=== PATIENT | male | born 1980 | race Caucasian/White ===

== ENCOUNTER 2016-10-21 20:09 | Emergency (ER) | payer OTHER ==
[2016-10-21 21:00] LABS: BASOPHIL % 0.2 % (0.0-0.4); Eosinophil % 0.9 % (0.00-5.0); Lymphocytes % 28.5 % (24.0-44.0); Mean Cell Volume 92.7 fl (78-100); Mean Corpuscular Hemoglobin 30.1 pg (26-32); Mean Platelet Volume 10.2 fl (6-9.5); Monocytes % 11.4 % (0.0-12.0); Platelet Count 213 K/mm3 (150-450); Red Blood Count 5.22 M/mm3 (4.1-5.6); White Blood Count 12.7 K/mm3 (4.0-10.5)
[2016-10-21] MEDS ORDERED: Sodium Chloride 0.9% 1000 ML 1,000 ML IV SCH (21:00)
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
[2016-10-21] MEDS ORDERED: Zofran 4 MG/2 ML VIAL IV ONE (21:05)
[2016-10-21] MEDS ORDERED: DILAUDID 2 MG INJECTION IV STA (21:06)
[2016-10-21 21:15] LABS: ANION GAP 13.2 MEQ/L (5-15); BLOOD UREA NITROGEN 14 mg/dL (9-20); CHLORIDE 105 mEq/L (98-107); Carbon Dioxide 30.3 mEq/L (21-32); Glucose 99 MG/DL (70-110); Potassium 3.6 mEq/L (3.5-5.1); SODIUM 145 mEq/L (136-145)
[2016-10-21] MEDS ORDERED: Sodium Chloride 0.9% 1000 ML 1,000 ML ONE (21:43)
[2016-10-21] MEDS ORDERED: DILAUDID 1 MG/ML INJECTION ONE ×2 (21:43→21:47)
[2016-10-21] MEDS ORDERED: Zofran 4 MG/2 ML VIAL ONE (21:43)
[2016-10-21 22:26] VITALS: BP 104/63; PULSE 88
[2016-10-21 22:27] VITALS: O2SAT 98
[2016-10-21] MEDS ORDERED: Norco 10/325 MG Tablet PO ONE (22:39)
[2016-10-21] MEDS ORDERED: Norco 10/325 MG Tablet ONE (22:56)
--- NOTE | 2016-10-22 08:41 | XRAY ---
Indication: Dizziness and right frontal tenderness following fall. High blood pressure. Multiple contiguous axial images obtained through the head without contrast. Comparison: None Normal-appearing brain parenchyma, ventricles, and bony calvarium. Visualized paranasal sinuses and mastoid air cells are pneumatized and clear. Impression: Normal CT head without contrast exam. CT DI 48.07
--- NOTE | 2016-10-22 08:43 | XRAY ---
Indication: Pain following fall. Comparison: None 3 views of the right elbow obtained. No bony, articular, or soft tissue abnormalities.
--- NOTE | 2016-10-22 08:43 | XRAY ---
Indication: Pain following fall. Comparison: None 3 views of the right shoulder limited by body habitus. No bony, articular, or soft tissue abnormalities.
== END 2016-10-21 23:06 | disposition home or self-care (01) ==
LOC: ED 20:09
DX: R55 Syncope and collapse (principal); S00.03XA Contusion of scalp, initial encounter; S50.01XA Contusion of right elbow, initial encounter; S40.011A Contusion of right shoulder, initial encounter; S53.401A Unspecified sprain of right elbow, initial encounter; S43.401A Unspecified sprain of right shoulder joint, initial encounter; I10 Essential (primary) hypertension; W22.03XA Walked into furniture, initial encounter
CPT/HCPCS: 36000; 36415; 70450; 73030; 73080; 80048; 85025; 93005; 93041; 96374; 99284; J1170; J2405

== ENCOUNTER 2016-12-02 17:37 | Emergency (ER) | payer OTHER ==
[2016-12-02] MEDS ORDERED: DUONEB 0.5-3 MG/3 ml Neb IH ONE ×2 (17:51→18:06)
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
[2016-12-02] MEDS ORDERED: Decadron 4 MG INJ IM ONE (17:54)
[2016-12-02] MEDS ORDERED: Decadron 4 MG INJ ONE (17:59)
[2016-12-02] MEDS ORDERED: DECADRON 10MG INJ. ONE (18:00)
[2016-12-02] MEDS ORDERED: DECADRON 10MG INJ. IM ONE (18:08)
[2016-12-02] MEDS ORDERED: PROVENTIL 2.5 MG/3 ML NEB IH ONE ×2 (18:54→18:57)
[2016-12-02 19:34] VITALS: BP 154/76; PULSE 99; O2SAT 92
--- NOTE | 2016-12-03 08:52 | XRAY ---
Indication: Dyspnea. Comparison: March 06, 2007. PA/lateral chest obtained with the lateral view limited due to respiration artifact. New diffuse bilateral interstitial alveolar opacities without consolidation or large effusion. Remaining heart and bony thorax unremarkable.
== END 2016-12-02 19:34 | disposition home or self-care (01) ==
LOC: ED 17:37
DX: J40 Bronchitis, not specified as acute or chronic (principal); R05 Cough; R06.02 Shortness of breath; R50.9 Fever, unspecified; I10 Essential (primary) hypertension; Z79.899 Other long term (current) drug therapy
CPT/HCPCS: 71020; 94640; 96372; 99284; J1100

== ENCOUNTER 2020-10-15 14:23 | Emergency (ER) | payer OTHER ==
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
[2020-10-15] MEDS ORDERED: Zofran 4 MG/2 ML VIAL ONE (15:10)
[2020-10-15] MEDS ORDERED: MORPHINE SULFATE 4 MG INJ ONE (15:10)
[2020-10-15] MEDS: MORPHINE SULFATE 4 MG INJ IV ONE (15:13)
[2020-10-15] MEDS: Zofran 4 MG/2 ML VIAL IV ONE (15:13)
[2020-10-15 15:30] LABS: Absolute Neutrophil Ct (ANC) 7.21 (1.4-6.9); BASOPHIL % 0.4 % (0.0-0.4); Basophil (Absolute #) 0.05 (0-0.4); Eosinophil % 1.3 % (0.00-5.0); Eosinophil (Absolute #) 0.15 (0-0.5); Hematocrit 47.5 % (42-50); Hemoglobin 14.9 gm/dl (12.5-18.0); Lymphocyte (Absolute #) 3.15 (1.0-4.6); Lymphocytes % 26.7 % (24.0-44.0); Mean Corpuscular Hemoglobin 28.2 pg (26-32); Mean Corpuscular Hgb Concent. 31.4 g/dl (32-36); Mean Platelet Volume 10.2 fl (7.5-11.0); Monocyte (Absolute #) 1.24 (0.0-1.3); Monocytes % 10.5 % (0.0-12.0); Neutrophil % 61.1 % (36.0-66.0); Platelet Count 249 K/mm3 (150-450); Red Blood Count 5.28 M/mm3 (4.1-5.6); Red Cell Distribution Width 16.6 % (11.5-14.0); White Blood Count 11.8 K/mm3 (4.0-10.5)
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
--- NOTE | 2020-10-15 16:50 | XRAY ---
Indication: Pain. 2-dimensional sonogram and color Doppler imaging of the major venous vessels of the left and right leg was performed. Comparison: None [employer] notes technically difficult exam due to patient body habitus. No thrombus seen in the examined deep venous vessels of the left and right leg including greater saphenous vein. Veins demonstrate normal compressibility. Venous waveforms are normal with and without augmentation. Impression: Left and right leg negative for DVT.
[2020-10-15 17:13] LABS: ALBUMIN 4.3 g/dL (3.5-5.0); ALKALINE PHOSPHATASE 82 U/L (38-126); ANION GAP 11.1 MEQ/L (5-15); BLOOD UREA NITROGEN 14 mg/dL (9-20); CHLORIDE 104 mmol/L (98-107); Calcium 9.3 mg/dL (8.4-10.2); Carbon Dioxide 29 mmol/L (22-30); Creatinine 1 0.84 mg/dL (0.66-1.25); EST GLOMERULAR FILTRATION RATE > 60.0 ML/MIN; Glucose 90 mg/dL (74-106); NT PRO BNP 84.8 pg/mL (0-450); Potassium 3.9 mmol/L (3.5-5.1); SGOT/AST 26 U/L (17-59); SGPT/ALT 23 U/L (0-50); SODIUM 140 mmol/L (137-145); Total Protein 7.8 g/dL (6.3-8.2)
[2020-10-15 17:15] VITALS: O2SAT 95
[2020-10-15 17:18] VITALS: BP 121/49; PULSE 70
== END 2020-10-15 17:28 | disposition home or self-care (01) ==
LOC: ED 14:23
DX: M79.605 Pain in left leg (principal); M79.604 Pain in right leg; R60.0 Localized edema; I10 Essential (primary) hypertension; E66.9 Obesity, unspecified; Z79.899 Other long term (current) drug therapy; F17.200 Nicotine dependence, unspecified, uncomplicated
CPT/HCPCS: 36000; 36415; 71045; 80053; 83605; 83735; 83880; 84484; 85025; 93005; 93970; 99284; J2270; J2405

== ENCOUNTER 2021-09-19 13:35 | Emergency (ER) | payer OTHER ==
[2021-09-19] MEDS ORDERED: ZOFRAN ODT 4 MG PO ONE (14:37)
[2021-09-19] MEDS ORDERED: Zosyn 3.375 GM Vial 3.375 GM in Sodium Chloride 100ML MINI-BAG PLUS 100 ML IV ONE (14:37)
[2021-09-19] MEDS ORDERED: PERCOCET TABLET 5/325MG PO ONE (14:38)
[2021-09-19] MEDS ORDERED: VANCOMYCIN 2 GRAM/400 ML BAG 2 GM/400 ML PIGGYBACK IV ONE ×2 (14:38→17:44)
[2021-09-19 15:03] LABS: Hematocrit 44.8 % (42-50); Mean Cell Volume 95.5 fl (78-100); Mean Corpuscular Hemoglobin 29.9 pg (26-32); Mean Corpuscular Hgb Concent. 31.3 g/dl (32-36); Platelet Count 155 K/mm3 (150-450); Red Blood Count 4.69 M/mm3 (4.1-5.6); Red Cell Distribution Width 16.5 % (11.5-14.0)
[2021-09-19] MEDS ORDERED: Zosyn 3.375 GM Vial IV ONE (15:04)
[2021-09-19] MEDS ORDERED: ZOFRAN ODT 4 MG ONE (15:04)
[2021-09-19] MEDS ORDERED: PERCOCET TABLET 5/325MG ONE (15:04)
[2021-09-19] MEDS ORDERED: Sodium Chloride 100ML MINI-BAG PLUS 100 ML IV ONE (15:06)
[2021-09-19 15:09] LABS: ALBUMIN 3.5 g/dL (3.5-5.0); ALKALINE PHOSPHATASE 73 U/L (38-126); ANION GAP 10.9 MEQ/L (5-15); BLOOD UREA NITROGEN 14 mg/dL (9-20); CHLORIDE 105 mmol/L (98-107); Calcium 8.3 mg/dL (8.4-10.2); Carbon Dioxide 30 mmol/L (22-30); Creatinine 1 0.78 mg/dL (0.66-1.25); EST GLOMERULAR FILTRATION RATE > 60.0 ML/MIN; Glucose 121 mg/dL (74-106); Potassium 3.5 mmol/L (3.5-5.1); SGOT/AST 28 U/L (17-59); SGPT/ALT 27 U/L (0-50); SODIUM 142 mmol/L (137-145); Total Protein 6.9 g/dL (6.3-8.2)
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
[2021-09-19] MEDS ORDERED: Sodium Chloride 0.9% 1000 ML 1,000 ML IV STA (15:39)
[2021-09-19] MEDS ORDERED: Sodium Chloride 0.9% 1000 ML 1,000 ML ONE (15:40)
[2021-09-19 15:54] LABS: BAND 17 % (0.0-2.0); Lymphocytes 11 % (24-44); Monocyte 8 % (0.0-12.0); Neutrophils 64 % (36.-66.); Total Cells Counted 100
[2021-09-19 15:57] LABS: Dohle Bodies 1+; Toxic Granulation 1+
[2021-09-19 15:58] LABS: Platelet Estimate NORMAL (NORMAL)
[2021-09-19 17:47] LABS: INFLUENZA A NEGATIVE (NEGATIVE); INFLUENZA B NEGATIVE (NEGATIVE); RESPIRATORY SYNCTIAL VIRUS NEGATIVE (Negative); SARS-CoV-2 Xpert Express NEGATIVE (NEGATIVE)
[2021-09-19] MEDS ORDERED: Lopressor 50 MG ONE (17:55)
[2021-09-19 20:16] VITALS: BP 135/79; PULSE 94; O2SAT 94
[2021-09-20] MEDS ORDERED: Toprol Xl 100 MG PO SCH (10:00)
== END 2021-09-19 20:12 | disposition left against medical advice (07) ==
LOC: ED 13:35
DX: L03.115 Cellulitis of right lower limb (principal); I48.91 Unspecified atrial fibrillation; Z79.01 Long term (current) use of anticoagulants; I89.0 Lymphedema, not elsewhere classified; I87.8 Other specified disorders of veins; Z72.0 Tobacco use
CPT/HCPCS: 0241U; 36000; 36415; 80053; 83605; 83880; 84484; 85025; 87040; 93005; 96374; 99284; Q0162; A9270-GY; J3370

== ENCOUNTER 2021-09-21 14:30 | Observation (INO) | payer OTHER ==
[2021-09-21] MEDS ORDERED: Sodium Chloride 0.9% 1000 ML 1,000 ML IV STA (15:16)
[2021-09-21 15:23] LABS: Hematocrit 43.8 % (42-50); Hemoglobin 13.3 gm/dl (12.5-18.0); Mean Cell Volume 97.6 fl (78-100); Mean Corpuscular Hemoglobin 29.6 pg (26-32); Mean Corpuscular Hgb Concent. 30.4 g/dl (32-36); Mean Platelet Volume 10.7 fl (7.5-11.0); Platelet Count 189 K/mm3 (150-450); Red Blood Count 4.49 M/mm3 (4.1-5.6); Red Cell Distribution Width 16.2 % (11.5-14.0); White Blood Count 14.7 K/mm3 (4.0-10.5)
[2021-09-21] MEDS ORDERED: ROCEPHIN 2 Gm-D5w 50ML BAG** 2 G/50 ML IVPB IV STA (15:24)
[2021-09-21] MEDS ORDERED: PERCOCET TABLET 5/325MG PO STA (15:24)
[2021-09-21] MEDS ORDERED: Sodium Chloride 0.9% 1000 ML 1,000 ML ONE (15:26)
[2021-09-21 15:30] LABS: ALBUMIN 3.6 g/dL (3.5-5.0); ALKALINE PHOSPHATASE 101 U/L (38-126); ANION GAP 13.3 MEQ/L (5-15); BLOOD UREA NITROGEN 11 mg/dL (9-20); CHLORIDE 102 mmol/L (98-107); Calcium 8.3 mg/dL (8.4-10.2); Carbon Dioxide 31 mmol/L (22-30); EST GLOMERULAR FILTRATION RATE > 60.0 ML/MIN; Glucose 107 mg/dL (74-106); Potassium 4.1 mmol/L (3.5-5.1); SGOT/AST 32 U/L (17-59); SGPT/ALT 33 U/L (0-50); SODIUM 142 mmol/L (137-145); Total Protein 7.2 g/dL (6.3-8.2)
[2021-09-21] MEDS ORDERED: PERCOCET TABLET 5/325MG ONE (15:32)
[2021-09-21 15:40] LABS: BAND 2 % (0.0-2.0); Lymphocytes 19 % (24-44); Monocyte 3 % (0.0-12.0); Neutrophils 76 % (36.-66.); Platelet Estimate NORMAL (NORMAL); Total Cells Counted 100
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
[2021-09-21] MEDS ORDERED: Zofran 4 MG/2 ML VIAL IV ONE (16:35)
[2021-09-21] MEDS ORDERED: Hydromorphone 1 mg/ml Injection IV ONE (16:35)
[2021-09-21] MEDS ORDERED: Zofran 4 MG/2 ML VIAL ONE (16:36)
[2021-09-21] MEDS ORDERED: Hydromorphone 1 mg/ml Injection ONE (16:37)
[2021-09-21 17:00] LABS: INFLUENZA A NEGATIVE (NEGATIVE); INFLUENZA B NEGATIVE (NEGATIVE); RESPIRATORY SYNCTIAL VIRUS NEGATIVE (Negative); SARS-CoV-2 Xpert Express NEGATIVE (NEGATIVE)
[2021-09-21] MEDS ORDERED: VANCOMYCIN 2 GRAM/400 ML BAG 2 GM/400 ML PIGGYBACK IV ONE (20:46)
[2021-09-21] MEDS ORDERED: TYLENOL 325 MG PO STA (21:23)
[2021-09-21] MEDS ORDERED: TYLENOL 325 MG ONE (21:25)
[2021-09-21] MEDS ORDERED: Heparin 1000 units/ml (10 Ml vial) 1,000 U in Sodium Chloride 0.9% 500 ML 500 ML IV ONE (21:27)
[2021-09-21] MEDS ORDERED: Zofran 4 MG/2 ML VIAL IV PRN (21:40)
[2021-09-21] MEDS ORDERED: DUONEB 0.5-3 MG/3 ml Neb IH ONE (22:06)
[2021-09-21] MEDS: DUONEB 0.5-3 MG/3 ml Neb IH SCH (22:15)
[2021-09-22] MEDS: Hydromorphone 1 mg/ml Injection IV PRN ×5 (00:10→20:39)
[2021-09-22] MEDS: VANCOMYCIN 2 GRAM/400 ML BAG 2 GM/400 ML PIGGYBACK IV SCH ×3 (03:49→19:29)
[2021-09-22] MEDS: TYLENOL 325 MG PO PRN (03:49)
[2021-09-22 06:03] LABS: Hemoglobin 12.4 gm/dl (12.5-18.0); Mean Cell Volume 97.6 fl (78-100); Mean Corpuscular Hemoglobin 29.5 pg (26-32); Mean Corpuscular Hgb Concent. 30.2 g/dl (32-36); Mean Platelet Volume 10.4 fl (7.5-11.0); Platelet Count 206 K/mm3 (150-450); Red Cell Distribution Width 16.1 % (11.5-14.0); White Blood Count 14.9 K/mm3 (4.0-10.5)
[2021-09-22 06:20] LABS: ALBUMIN 3.7 g/dL (3.5-5.0); ALKALINE PHOSPHATASE 87 U/L (38-126); ANION GAP 10.6 MEQ/L (5-15); BLOOD UREA NITROGEN 11 mg/dL (9-20); CHLORIDE 103 mmol/L (98-107); Calcium 8.2 mg/dL (8.4-10.2); Carbon Dioxide 32 mmol/L (22-30); Creatinine 1 0.68 mg/dL (0.66-1.25); EST GLOMERULAR FILTRATION RATE > 60.0 ML/MIN; Glucose 115 mg/dL (74-106); Potassium 3.6 mmol/L (3.5-5.1); SGOT/AST 27 U/L (17-59); SGPT/ALT 30 U/L (0-50); SODIUM 142 mmol/L (137-145); Total Protein 7.3 g/dL (6.3-8.2)
[2021-09-22] MEDS: DUONEB 0.5-3 MG/3 ml Neb IH SCH ×2 (06:57→19:09)
[2021-09-22 07:07] LABS: ANISOCYTOSIS 1+; BAND 2 % (0.0-2.0); Eosinophil 1 % (0.00-3.0); Lymphocytes 16 % (24-44); Monocyte 5 % (0.0-12.0); Neutrophils 76 % (36.-66.); Platelet Estimate NORMAL (NORMAL); Total Cells Counted 100
[2021-09-22] MEDS ORDERED: PHARMACY DOSING REQUEST MC ONE (07:26)
[2021-09-22] MEDS ORDERED: Ventolin Hfa MDI IH PRN (08:38)
[2021-09-22] MEDS ORDERED: VENTOLIN COMMON CANISTER IH PRN (08:42)
[2021-09-22 09:04] LABS: INR 1.28 (0.8-3.0); PROTIME 15.1 SECONDS (9.4-12.5)
[2021-09-22] MEDS: Lopressor 50 MG PO SCH ×2 (09:47→21:13)
[2021-09-22] MEDS: Miralax Powder 17GM PACKET PO SCH (09:50)
[2021-09-22] MEDS: OXYCODONE-ACETAMINOPHEN 10-325 PO PRN (09:57)
[2021-09-22] MEDS ORDERED: ROCEPHIN 2 Gm-D5w 50ML BAG** 2 G/50 ML IVPB IV SCH (10:00)
[2021-09-22] MEDS ORDERED: NON-FORMULARY ITEM (Bumetanide [Bumetanide] 2 MG Tablet) PO SCH (10:00)
[2021-09-22] MEDS ORDERED: BUMEX 1 MG PO SCH (10:00)
[2021-09-22] MEDS ORDERED: NON-FORMULARY ITEM (Apixaban*** [Eliquis 5 Mg Tablet***] 5 MG Tablet) PO SCH (10:00)
[2021-09-22] MEDS ORDERED: NON-FORMULARY ITEM (Metoprolol Tartrate [Metoprolol Tartrate] 100 MG Tablet) PO SCH (10:00)
--- NOTE | 2021-09-22 10:38 | HP ---
CHIEF COMPLAINT: Lower extremity edema and pain. HISTORY OF PRESENT ILLNESS: The patient is a 41-year-old white male patient who presented to the emergency room a couple days prior to this for problems with increasing swelling and redness of the right leg. He was felt the need to be admitted at that time. After receiving IV antibiotics, the patient signed out AMA. He represented to the emergency room on 09/21/2021 with essentially the same problem and was admitted therefore at that time for IV antibiotic treatment and physical therapy evaluation and management. PAST MEDICAL/SURGICAL HISTORY: Otherwise significant for morbid obesity. He has chronic venous stasis disease in both lateral lower extremities. He has history of chronic obstructive pulmonary disease, peripheral neuropathy, arrhythmia, hypertension, hernia repair of C1, C2 fracture, abdominal hernia. HOME MEDICATIONS: Eliquis 5 mg daily, bumetanide 1 tablet daily, metoprolol 1 tablet b.i.d. ALLERGIES: MORPHINE. PROPOXYPHENE NAPSYLATE. PHYSICAL EXAMINATION: The patient's vital signs on admission showed temperature 99.5F, pulse 80, respiratory rate 18 and blood pressure 166/89. His O2 saturation was 100%. HEENT: Normocephalic, atraumatic. Pupils equal round reactive to light. Normal extraocular movements. Oropharynx is pink and moist. NECK: Supple without lymphadenopathy, thyromegaly or JVD. CHEST: Clear to auscultation. HEART: Appeared to be regular rate and rhythm at this time without murmurs, rubs or gallops. ABDOMEN: Soft. No palpable masses. EXTREMITIES: Revealed significant bilateral lower extremity edema but the right also had warmth and redness in the posterior portion of the thigh. The patient reported after the IV antibiotics, he was looking somewhat better but at this time was felt to need physical therapy evaluation and management of right lower extremity particularly and to continue IV antibiotics. LAB DATA AND TESTS: The patient's laboratory studies initially showed lactic acid of 1.7, BUN 11, creatinine 0.7, sugar 107. Liver functions were normal. His white count was elevated at 14,700, hemoglobin 13.3, PLT count of 189,000. He had 2 bands and 76 polys on differential count. ASSESSMENT: A patient with right lower extremity edema chronically with cellulitis. The patient was placed on IV antibiotics and we will obtain physical therapy consultation as well as wound care management.
--- NOTE | 2021-09-22 11:29 | XRAY ---
Indication: Long-term IV access and therapy for right leg infection. Informed consent obtained. Patient was placed on the fluoroscopic table in a supine position. Initial sonographic imaging of the right upper extremity was performed for localization of patent veins. The right upper extremity was then prepped and draped in sterile fashion. Tourniquet applied. 1% lidocaine plain used for local anesthesia. Using ultrasound guidance and a micropuncture needle, a basilic vein above the elbow was successfully percutaneously cannulized. A floppy tip 0.018 guidewire inserted. Tourniquet released. Needle was exchanged for a 5 Wallisian dilator peel-away sheath catheter. Ultimately a 5 Wallisian double-lumen PICC line was inserted over a longer 0.018 guidewire with the tip positioned in the distal SVC using fluoroscopic guidance. Guidewire removed. Both ports flushed with heparinized saline. Catheter was secured. Postoperative instructions and orders given. Patient discharged in good condition. Impression: Technically successful right upper extremity PICC line placement using ultrasound and fluoroscopic guidance. No immediate complications. Approximately 2 cc blood loss. Approximately 0.1 minute of fluoroscopy used. Catheter length is 50 cm.
--- NOTE | 2021-09-22 11:32 | XRAY ---
Indication: Ultrasound guidance for PICC line placement. Initial sonographic imaging of the right upper extremity was performed for localization of patent veins. A patent basilic vein identified above the elbow. Ultrasound guidance was then used for PICC line insertion. Full PICC line insertion is reported separately.
--- NOTE | 2021-09-22 15:23 | XRAY ---
Indication: Right leg swelling and erythema. Two-dimensional sonogram and color Doppler imaging of the major venous vessels of the right leg performed. Comparison: October 15, 2020. Sonogram again technically difficult due to patient body habitus. No thrombus seen in the examined deep venous vessels of the right leg including greater saphenous vein. Veins demonstrate normal compressibility. Venous waveforms are normal with and without augmentation. Impression: Right leg continues to be negative for DVT.
--- NOTE | 2021-09-22 15:25 | XRAY ---
Indication: Right leg swelling and erythema. Two-dimensional sonogram and color Doppler imaging of the major arteries of the right leg performed. Comparison: None Sonogram technically difficult due to patient body habitus. Visualized common femoral, superficial femoral, popliteal, posterior tibial, and dorsal pedal arteries are widely patent. Arterial waveforms are monophasic throughout the right leg. Impression: 1. Right leg arterial sonogram negative for critical stenosis/obstruction. 2. Monophasic arterial waveforms suggest a more proximal stenosis, probably in the pelvis.
[2021-09-23] MEDS: VANCOMYCIN 2 GRAM/400 ML BAG 2 GM/400 ML PIGGYBACK IV SCH (03:06)
[2021-09-23] MEDS: Hydromorphone 1 mg/ml Injection IV PRN ×3 (03:10→17:05)
[2021-09-23] MEDS: TYLENOL 325 MG PO PRN (05:59)
[2021-09-23 06:25] LABS: Hematocrit 41.3 % (42-50); Hemoglobin 12.4 gm/dl (12.5-18.0); Mean Cell Volume 98.3 fl (78-100); Mean Corpuscular Hemoglobin 29.5 pg (26-32); Mean Platelet Volume 10.4 fl (7.5-11.0); Platelet Count 231 K/mm3 (150-450); Red Cell Distribution Width 15.9 % (11.5-14.0); White Blood Count 14.5 K/mm3 (4.0-10.5)
[2021-09-23 07:02] LABS: ALBUMIN 3.6 g/dL (3.5-5.0); ALKALINE PHOSPHATASE 86 U/L (38-126); ANION GAP 9.1 MEQ/L (5-15); BLOOD UREA NITROGEN 11 mg/dL (9-20); CHLORIDE 100 mmol/L (98-107); Calcium 8.4 mg/dL (8.4-10.2); Carbon Dioxide 31 mmol/L (22-30); Creatinine 1 0.67 mg/dL (0.66-1.25); EST GLOMERULAR FILTRATION RATE > 60.0 ML/MIN; Glucose 120 mg/dL (74-106); PROCALCITONIN 0.145 ng/mL (0.030-0.080); Potassium 3.6 mmol/L (3.5-5.1); SGOT/AST 26 U/L (17-59); SGPT/ALT 28 U/L (0-50); SODIUM 137 mmol/L (137-145); Total Protein 7.3 g/dL (6.3-8.2)
[2021-09-23] MEDS: DUONEB 0.5-3 MG/3 ml Neb IH SCH ×2 (07:09→19:30)
[2021-09-23 08:11] LABS: BAND 3 % (0.0-2.0); Eosinophil 1 % (0.00-3.0); Lymphocytes 21 % (24-44); Monocyte 10 % (0.0-12.0); Neutrophils 65 % (36.-66.); Platelet Estimate NORMAL (NORMAL); Total Cells Counted 100
[2021-09-23] MEDS: Lopressor 50 MG PO SCH ×2 (09:44→22:08)
[2021-09-23] MEDS: Cipro 500 MG PO SCH ×2 (09:44→22:08)
[2021-09-23] MEDS: BUMEX 1 MG PO SCH (09:44)
[2021-09-23] MEDS: Miralax Powder 17GM PACKET PO SCH (09:45)
[2021-09-23] MEDS ORDERED: TROUGH DRUG LEVELS IJ ONE (11:30)
[2021-09-23] MEDS ORDERED: ELIQUIS 2.5 MG TABLET PO SCH (12:00)
[2021-09-23] MEDS: OXYCODONE-ACETAMINOPHEN 10-325 PO PRN ×2 (14:16→22:07)
[2021-09-24] MEDS: OXYCODONE-ACETAMINOPHEN 10-325 PO PRN ×2 (04:38→10:04)
[2021-09-24] MEDS: DUONEB 0.5-3 MG/3 ml Neb IH SCH (05:18)
[2021-09-24 06:46] LABS: Hematocrit 40.3 % (42-50); Hemoglobin 12.1 gm/dl (12.5-18.0); Mean Cell Volume 97.8 fl (78-100); Mean Corpuscular Hemoglobin 29.4 pg (26-32); Mean Platelet Volume 10.3 fl (7.5-11.0); Platelet Count 254 K/mm3 (150-450); Red Blood Count 4.12 M/mm3 (4.1-5.6); Red Cell Distribution Width 15.7 % (11.5-14.0); White Blood Count 12.4 K/mm3 (4.0-10.5)
[2021-09-24] MEDS: Hydromorphone 1 mg/ml Injection IV PRN (08:05)
[2021-09-24 08:34] VITALS: BP 102/55; PULSE 67; O2SAT 99
[2021-09-24 09:31] LABS: ALBUMIN 3.2 g/dL (3.5-5.0); ALKALINE PHOSPHATASE 92 U/L (38-126); ANION GAP 11.8 MEQ/L (5-15); BLOOD UREA NITROGEN 10 mg/dL (9-20); CHLORIDE 100 mmol/L (98-107); Calcium 8.3 mg/dL (8.4-10.2); Carbon Dioxide 33 mmol/L (22-30); Creatinine 1 0.69 mg/dL (0.66-1.25); EST GLOMERULAR FILTRATION RATE > 60.0 ML/MIN; Glucose 130 mg/dL (74-106); PROCALCITONIN 0.124 ng/mL (0.030-0.080); Potassium 3.6 mmol/L (3.5-5.1); SGOT/AST 25 U/L (17-59); SGPT/ALT 26 U/L (0-50); SODIUM 141 mmol/L (137-145); Total Protein 6.6 g/dL (6.3-8.2)
[2021-09-24] MEDS: Miralax Powder 17GM PACKET PO SCH (10:05)
[2021-09-24] MEDS: Lopressor 50 MG PO SCH (10:05)
[2021-09-24] MEDS: Cipro 500 MG PO SCH (10:14)
[2021-09-24] MEDS: BUMEX 1 MG PO SCH (10:15)
[2021-09-24 11:09] LABS: BAND 3 % (0.0-2.0); Lymphocytes 25 % (24-44); Monocyte 7 % (0.0-12.0); Neutrophils 65 % (36.-66.); Total Cells Counted 100
[2021-09-24 11:10] LABS: Platelet Estimate NORMAL (NORMAL)
== END 2021-09-24 11:00 | disposition home or self-care (01) ==
LOC: ED 14:30 → MED SURG 21:26
PROVIDERS: ADMIT Family Medicine; ATTEND Family Medicine
DX: L03.115 Cellulitis of right lower limb (principal); I89.0 Lymphedema, not elsewhere classified; I87.8 Other specified disorders of veins; I49.9 Cardiac arrhythmia, unspecified; I10 Essential (primary) hypertension; J44.9 Chronic obstructive pulmonary disease, unspecified; E66.9 Obesity, unspecified; F17.200 Nicotine dependence, unspecified, uncomplicated; Z79.01 Long term (current) use of anticoagulants; Z79.899 Other long term (current) drug therapy; Z20.828 Contact with and (suspected) exposure to other viral communicable diseases
CPT/HCPCS: 0241U; 29581; 36000; 36415; 36573; 76937; 77001; 80053; 80202; 83605; 84145; 85025; 85610; 87040; 87070; 87077; 87186; 93926; 93971; 94640; 94760; 96365; 96374; 96375; 97161; 97597; 99285; C1769; G0378; J0696; J1170; J1642; J1644; J2405; A9270-GY; J3370

== ENCOUNTER 2022-04-20 12:31 | Observation (INO) | payer OTHER ==
[2022-04-20] MEDS ORDERED: TYLENOL 325 MG PO STA (13:23)
[2022-04-20] MEDS ORDERED: TYLENOL 325 MG ONE ×2 (13:24→13:27)
[2022-04-20] MEDS ORDERED: PIPERACILLIN/TAZOBACTAM 3.375 GM in Sodium Chloride 100ML MINI-BAG PLUS 100 ML IV ONE (13:50)
[2022-04-20] MEDS ORDERED: VANCOMYCIN 1 GRAM/200 ML BAG 1 GM/200 ML PIGGYBACK IV ONE ×2 (13:50→14:32)
[2022-04-20] MEDS ORDERED: PIPERACILLIN/TAZOBACTAM IV ONE (13:56)
[2022-04-20] MEDS ORDERED: Sodium Chloride 100ML MINI-BAG PLUS 100 ML IV ONE (13:57)
[2022-04-20 14:05] LABS: Hematocrit 47.7 % (42-50); Mean Corpuscular Hemoglobin 30.5 pg (26-32); Mean Corpuscular Hgb Concent. 31.4 g/dL (32-36); Mean Platelet Volume 10.8 fL (7.5-11.0); Platelet Count 206 x10^3/uL (150-450); Red Blood Count 4.92 x10^6/uL (4.1-5.6); Red Cell Distribution Width 15.2 % (11.5-14.0)
[2022-04-20 14:19] LABS: ALBUMIN 4.1 g/dL (3.5-5.0); ALKALINE PHOSPHATASE 78 U/L (38-126); BLOOD UREA NITROGEN 14 mg/dL (9-20); CHLORIDE 104 mmol/L (98-107); Calcium 9.1 mg/dL (8.4-10.2); Carbon Dioxide 30 mmol/L (22-30); EST GLOMERULAR FILTRATION RATE > 60.0 ML/MIN; Glucose 99 mg/dL (74-106); Potassium 3.9 mmol/L (3.5-5.1); SGOT/AST 27 U/L (17-59); SGPT/ALT 23 U/L (0-50); SODIUM 141 mmol/L (137-145); Total Protein 8.3 g/dL (6.3-8.2)
[2022-04-20 14:24] LABS: White Blood Count 25.7 x10^3/uL (4.0-10.5)
[2022-04-20] MEDS ORDERED: TORAdol 30 mg Injection IV ONE (14:32)
[2022-04-20] MEDS ORDERED: TORAdol 30 mg Injection ONE (14:33)
[2022-04-20 14:41] LABS: INFLUENZA A NEGATIVE (NEGATIVE); INFLUENZA B NEGATIVE (NEGATIVE); RESPIRATORY SYNCTIAL VIRUS NEGATIVE (Negative); SARS-CoV-2 Xpert Express NEGATIVE (NEGATIVE)
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
--- NOTE | 2022-04-20 15:02 | XRAY ---
Exam: Duplex Doppler Ultrasound of the right lower extremity. Comparison: Duplex Doppler venous ultrasound examination of the right lower extremity from 09/22/2021. Indication: Cellulitis. Findings: The examination of the right lower extremity was carried out in the usual manner imaging licensing representative sections of the common femoral vein through the popliteal vein. The posterior tibial veins were also evaluated. Normal color flow was seen throughout. Normal spontaneous and phasic flow was seen at all licensing representative sections. There was normal transducer compression and doppler signal augmentation at all levels. The greater saphenous vein demonstrated normal color blood flow, transducer compression, and Doppler signal augmentation within the proximal right thigh. Apparent subcutaneous edema is seen within the distal right lower leg. Correlate clinically. Impression: 1. No evidence of deep venous thrombosis within the right lower extremity. This is unchanged from 09/14/2021. 2. Apparent subcutaneous edema is seen within the distal right lower leg. Correlate clinically.
[2022-04-20] MEDS ORDERED: VANCOMYCIN 1 GRAM/200 ML BAG 1 GM/200 ML PIGGYBACK IV SCH (15:45)
[2022-04-20] MEDS ORDERED: VENTOLIN COMMON CANISTER IH PRN (16:15)
[2022-04-20 17:24] LABS: Appearance CLEAR (CLEAR); Bilirubin SMALL (NEGATIVE); Glucose NEGATIVE (NEGATIVE); Ketones NEGATIVE (NEGATIVE); Nitrite NEGATIVE (NEGATIVE); Ph 6.5 (5-6); Protein,Urine Dip 30 (Negative); RBC TRACE-INTACT Ery/ul (0-5)
[2022-04-20] MEDS: PIPERACILLIN/TAZOBACTAM 3.375 GM in Sodium Chloride 100ML MINI-BAG PLUS 100 ML IV SCH ×2 (17:24→23:39)
[2022-04-20 17:25] LABS: Dipstick done @ ? MAIN LAB; Urobilinogen 0.2 mg/dL (0-1)
[2022-04-20 17:34] LABS: Mucus SLIGHT /HPF (NEGATIVE); Urine Cultured Indicated? YES; WBC 0-2 /HPF (0-5)
[2022-04-20 17:41] LABS: BAND 12 % (0.0-2.0); Eosinophil 3 % (0.00-3.0); Lymphocytes 9 % (24-44); Total Cells Counted 100
[2022-04-20 17:42] LABS: Platelet Estimate NORMAL (NORMAL)
[2022-04-20] MEDS: HYDROCODONE-ACETAMIN 10-325 MG PO PRN (17:56)
[2022-04-20] MEDS: PROVENTIL 2.5 MG/3 ML NEB IH SCH (18:53)
[2022-04-20] MEDS ORDERED: Hydromorphone 1 mg/ml Injection IV PRN (20:23)
[2022-04-20] MEDS ORDERED: Hydromorphone 1 mg/ml Injection ONE (20:28)
[2022-04-20] MEDS: Hydromorphone 1 mg/ml Injection IV PRN (20:40)
[2022-04-20] MEDS: VANCOCIN IV SCH (21:18)
[2022-04-20] MEDS: SODIUM CHLORIDE 0.9% IV SCH (21:18)
[2022-04-20] MEDS: REQUIP 2MG TAB PO SCH (21:19)
[2022-04-20] MEDS: Lopressor 50 MG PO SCH (21:19)
[2022-04-20] MEDS: ELIQUIS 2.5 MG TABLET PO SCH (21:19)
[2022-04-20] MEDS ORDERED: NON-FORMULARY ITEM (Metoprolol Tartrate [Metoprolol Tartrate] 100 MG Tablet) PO SCH (22:00)
[2022-04-20] MEDS ORDERED: NON-FORMULARY ITEM (Apixaban*** [Eliquis 5 Mg Tablet***] 5 MG Tablet) PO SCH (22:00)
[2022-04-20] MEDS ORDERED: NON-FORMULARY ITEM (Ropinirole Hcl [Ropinirole Hcl] 3 MG Tablet) PO SCH (22:00)
[2022-04-21] MEDS: Hydromorphone 1 mg/ml Injection IV PRN ×5 (00:27→19:50)
[2022-04-21] MEDS: PIPERACILLIN/TAZOBACTAM 3.375 GM in Sodium Chloride 100ML MINI-BAG PLUS 100 ML IV SCH ×2 (05:00→11:07)
[2022-04-21 05:24] LABS: Absolute Neutrophil Ct (ANC) 19.16 x10^3/uL (1.4-6.9); Basophil (Absolute #) 0.06 x10^3/uL (0-0.4); Eosinophil % 0.3 % (0.00-5.0); Eosinophil (Absolute #) 0.07 x10^3/uL (0-0.5); Hematocrit 44.2 % (42-50); Hemoglobin 13.8 g/dL (12.5-18.0); Lymphocyte (Absolute #) 1.12 x10^3/uL (1.0-4.6); Lymphocytes % 5.2 % (24.0-44.0); Mean Cell Volume 98.4 fL (78-100); Mean Corpuscular Hemoglobin 30.7 pg (26-32); Mean Corpuscular Hgb Concent. 31.2 g/dL (32-36); Mean Platelet Volume 10.8 fL (7.5-11.0); Monocyte (Absolute #) 1.06 x10^3/uL (0.0-1.3); Monocytes % 4.9 % (0.0-12.0); Neutrophil % 88.8 % (36.0-66.0); Platelet Count 183 x10^3/uL (150-450); Red Blood Count 4.49 x10^6/uL (4.1-5.6); Red Cell Distribution Width 15.4 % (11.5-14.0); White Blood Count 21.6 x10^3/uL (4.0-10.5)
[2022-04-21] MEDS: SODIUM CHLORIDE 0.9% IV SCH ×3 (05:43→17:59)
[2022-04-21] MEDS: VANCOCIN IV SCH ×2 (05:43→13:57)
[2022-04-21 05:53] LABS: ALBUMIN 3.8 g/dL (3.5-5.0); ALKALINE PHOSPHATASE 74 U/L (38-126); ANION GAP 10.8 MEQ/L (5-15); BLOOD UREA NITROGEN 18 mg/dL (9-20); CHLORIDE 105 mmol/L (98-107); Calcium 8.7 mg/dL (8.4-10.2); Carbon Dioxide 27 mmol/L (22-30); Creatinine 1 1.03 mg/dL (0.66-1.25); EST GLOMERULAR FILTRATION RATE > 60.0 ML/MIN; Glucose 155 mg/dL (74-106); Potassium 3.8 mmol/L (3.5-5.1); SGOT/AST 21 U/L (17-59); SGPT/ALT 20 U/L (0-50); SODIUM 140 mmol/L (137-145); Total Protein 7.6 g/dL (6.3-8.2)
[2022-04-21] MEDS: PROVENTIL 2.5 MG/3 ML NEB IH SCH ×4 (07:14→18:46)
[2022-04-21] MEDS: HYDROCODONE-ACETAMIN 10-325 MG PO PRN ×2 (08:20→14:03)
[2022-04-21] MEDS: Lopressor 50 MG PO SCH ×2 (10:59→21:29)
[2022-04-21] MEDS: ELIQUIS 2.5 MG TABLET PO SCH ×2 (10:59→21:30)
--- NOTE | 2022-04-21 16:02 | XRAY ---
Indication: Right leg swelling. Chronic cellulitis. Two-dimensional sonogram and color Doppler imaging of the major arteries of the right leg performed. Comparison: September 22, 2021 Sonogram again limited due to patient body habitus. Visualized right common femoral, deep femoral, superficial femoral, popliteal, posterior tibial, and dorsal pedal arteries are negative for critical stenosis/obstruction. Arterial waveforms remain monophasic throughout the right leg. Patient refused ankle brachial index exam. Impression: Again limited sonogram due to patient body habitus. Right leg arterial sonogram remains negative for critical stenosis/obstruction.
[2022-04-21] MEDS: NEBCIN IV SCH (17:59)
[2022-04-21] MEDS: REQUIP 2MG TAB PO SCH (21:29)
[2022-04-22] MEDS: Hydromorphone 1 mg/ml Injection IV PRN ×2 (00:14→04:52)
[2022-04-22] MEDS ORDERED: TROUGH DRUG LEVELS IJ ONE (05:30)
[2022-04-22] MEDS: PROVENTIL 2.5 MG/3 ML NEB IH SCH ×3 (07:31→15:07)
[2022-04-22] MEDS: HYDROCODONE-ACETAMIN 10-325 MG PO PRN (07:40)
[2022-04-22] MEDS: SODIUM CHLORIDE 0.9% IV SCH ×3 (08:29→16:20)
[2022-04-22] MEDS: NEBCIN IV SCH ×3 (08:29→16:20)
[2022-04-22 08:51] LABS: Hematocrit 45.2 % (42-50); Mean Platelet Volume 10.5 fL (7.5-11.0); Platelet Count 167 x10^3/uL (150-450); Red Blood Count 4.52 x10^6/uL (4.1-5.6); Red Cell Distribution Width 15.1 % (11.5-14.0)
[2022-04-22] MEDS: ELIQUIS 2.5 MG TABLET PO SCH (09:17)
[2022-04-22] MEDS: Lopressor 50 MG PO SCH (09:17)
[2022-04-22] MEDS: Dilaudid 4 MG Tab PO PRN ×2 (09:21→15:35)
[2022-04-22] MEDS ORDERED: Dilaudid 4 MG Tab PO ONE (11:57)
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
[2022-04-22 16:25] VITALS: BP 141/89; PULSE 135; O2SAT 99
== END 2022-04-22 17:38 | disposition home or self-care (01) ==
LOC: ED 12:31 → MED SURG 15:29
PROVIDERS: ADMIT Family Medicine; ATTEND Family Medicine
DX: L03.115 Cellulitis of right lower limb (principal); S81.801A Unspecified open wound, right lower leg, initial encounter; I10 Essential (primary) hypertension; Z79.899 Other long term (current) drug therapy; Z20.828 Contact with and (suspected) exposure to other viral communicable diseases; Z79.01 Long term (current) use of anticoagulants
CPT/HCPCS: 0241U; 29581; 36000; 36415; 36573; 71045; 80053; 81015; 83605; 85025; 85027; 87040; 87086; 93041; 93268; 93926; 93971; 94640; 94760; 96365; 96367; 96374; 97161; 99285; G0378; J1170; J1885; J3260; J3370; J7609; A9270-GY

== ENCOUNTER 2023-01-05 10:47 | Emergency (ER) | payer OTHER ==
[2023-01-05] MEDS ORDERED: Sodium Chloride 0.9% 1000 ML 1,000 ML IV STA (11:08)
[2023-01-05 11:13] VITALS: O2SAT 96
[2023-01-05] MEDS ORDERED: Sodium Chloride 0.9% 1000 ML 1,000 ML ONE (11:19)
[2023-01-05 11:20] LABS: Absolute Neutrophil Ct (ANC) 4.56 x10^3/uL (1.4-6.9); BASOPHIL % 0.8 % (0.0-0.4); Basophil (Absolute #) 0.06 x10^3/uL (0-0.4); Eosinophil % 1.4 % (0.00-5.0); Eosinophil (Absolute #) 0.11 x10^3/uL (0-0.5); Hematocrit 45.5 % (42-50); Hemoglobin 14.6 g/dL (12.5-18.0); IMMATURE GRAN # 0.02 x10^3u/L (0.00-0.03); IMMATURE GRAN % 0.3 % (0.00-0.4); Lymphocyte (Absolute #) 2.25 x10^3/uL (1.0-4.6); Lymphocytes % 28.8 % (24.0-44.0); Mean Cell Volume 94.6 fL (78-100); Mean Corpuscular Hemoglobin 30.4 pg (26-32); Mean Corpuscular Hgb Concent. 32.1 g/dL (32-36); Mean Platelet Volume 9.8 fL (7.5-11.0); Monocytes % 10.3 % (0.0-12.0); Neutrophil % 58.4 % (36.0-66.0); Platelet Count 195 x10^3/uL (150-450); Red Blood Count 4.81 x10^6/uL (4.1-5.6); Red Cell Distribution Width 14.3 % (11.5-14.0); White Blood Count 7.8 x10^3/uL (4.0-10.5)
[2023-01-05 11:24] LABS: ADD URINE CULTURE? YES (NO); Appearance Turbid (Clear); Bacteria None Seen /HPF (None Seen); Bilirubin Negative (Negative); Blood Moderate (Negative); Epithelial Cells None Seen /HPF (None Seen); Glucose, Urine Negative (Negative); Hyaline Casts NONE SEEN /LPF (0-2); Ketones Negative (Negative); Leukocyte Esterase Moderate (Negative); Nitrite Positive (Negative); Protein,Urine Dip 100 (Negative); RBC >100 /HPF (0-5); Urobilinogen 0.2 mg/dL (0.2); WBC 21-50 /HPF (0-5)
[2023-01-05 11:33] LABS: ALBUMIN 4.3 g/dL (3.5-5.0); ALKALINE PHOSPHATASE 72 U/L (38-126); ANION GAP 13.5 MEQ/L (5-15); BLOOD UREA NITROGEN 11 mg/dL (9-20); CHLORIDE 105 mmol/L (98-107); Calcium 8.7 mg/dL (8.4-10.2); Carbon Dioxide 29 mmol/L (22-30); Creatinine 1 0.91 mg/dL (0.66-1.25); EST GLOMERULAR FILTRATION RATE > 60.0 ML/MIN; Glucose 120 mg/dL (74-106); Potassium 3.6 mmol/L (3.5-5.1); SGOT/AST 36 U/L (17-59); SGPT/ALT 34 U/L (0-50); SODIUM 143 mmol/L (137-145); Total Protein 7.9 g/dL (6.3-8.2)
[2023-01-05] MEDS ORDERED: Cipro 500 MG PO STA (12:43)
[2023-01-05 12:56] VITALS: BP 146/90
[2023-01-05] MEDS ORDERED: Cipro 500 MG ONE (13:13)
[2023-01-05] MEDS ORDERED: TORAdol 30 mg Injection IV ONE (13:26)
[2023-01-05] MEDS ORDERED: TORAdol 30 mg Injection ONE (13:29)
--- NOTE | 2023-01-05 13:50 | XRAY ---
Indication: Hematuria and bladder pressure. Multiple contiguous axial images obtained through the abdomen and pelvis using 100 cc Isovue 370 contrast. Comparison: None Study is limited due to patient body habitus. Lung bases demonstrates mild left base subsegmental atelectasis/scarring and tiny right base calcified granuloma. Heart not enlarged. Small hiatal hernia. Noncontrasted stomach and bowel loops appear nonobstructed with incidental 3.3 cm duodenal diverticulum. Previous appendectomy. Mid abdomen demonstrates a 4.5 cm wide ventral hernia defect with incompletely visualized herniated omental fat and loop of transverse colon. Negative for incarceration. 3-4 mm nonobstructing right renal calculus. No free fluid/air. Remaining liver, gallbladder, pancreas, spleen, adrenal glands, kidneys, ureters, bladder, and aorta are unremarkable for noncontrast exam. No pathologic little. No lymphadenopathy. Visualized osseous structures intact with mild degenerative changes throughout the thoracic spine. Impression: 1. Limited exam due to patient body habitus. 2. Midline ventral hernia with incompletely visualized herniated omental fat and loop of transverse colon. No obvious complications. 3. Incidental small hiatal hernia, duodenal diverticulum, nonobstructing right renal micro-calculus, and thoracic degenerative changes.
[2023-01-05 14:10] VITALS: PULSE 64
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
== END 2023-01-05 14:14 | disposition home or self-care (01) ==
LOC: ED 10:47
DX: K43.9 Ventral hernia without obstruction or gangrene (principal); N39.0 Urinary tract infection, site not specified; R31.9 Hematuria, unspecified; K57.10 Diverticulosis of small intestine without perforation or abscess without bleeding; N20.0 Calculus of kidney; I10 Essential (primary) hypertension; Z79.01 Long term (current) use of anticoagulants; Z79.899 Other long term (current) drug therapy; Z28.310 Unvaccinated for COVID-19; Z72.0 Tobacco use; Z86.16 Personal history of COVID-19
CPT/HCPCS: 36000; 36415; 74177; 80053; 81001; 85025; 87086; 96374; 99284; J1885; A9270-GY

== ENCOUNTER 2024-10-28 11:34 | Emergency (ER) | payer MEDICARE ==
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
[2024-10-28] MEDS ORDERED: Sodium Chloride 0.9% 1000 ML 1,000 ML ONE ×2 (12:05→14:40)
[2024-10-28 12:14] LABS: Hematocrit 48.8 % (40.1-51.0); Hemoglobin 14.5 g/dL (13.7-17.5); Mean Cell Volume 104.7 fL (79.0-92.2); Mean Corpuscular Hemoglobin 31.1 pg (25.7-32.2); Mean Corpuscular Hgb Concent. 29.7 g/dL (32.3-36.5); Mean Platelet Volume 10.8 fL (9.4-12.4); Platelet Count 144 x10^3/uL (163-337); Red Blood Count 4.66 x10^6/uL (4.63-6.08); Red Cell Distribution Width 15.9 % (11.6-14.4); White Blood Count 13.8 x10^3/uL (4.23-9.07)
[2024-10-28 12:15] LABS: INR 1.04 (0.8-3.0); PROTIME 11.3 SECONDS (9.4-12.5)
[2024-10-28] MEDS ORDERED: Versed 50 MG/ 10 Ml MDV*** 50 MG in Sodium Chloride 0.9% 250 ML 240 ML IV PRN (12:18)
[2024-10-28] MEDS ORDERED: SODIUM BICARBONATE 50 MEQ/50 ML ABBOJECT IV ONE (12:18)
[2024-10-28] MEDS: SODIUM BICARBONATE 50 MEQ/50 ML ABBOJECT IV ONE (12:24)
[2024-10-28] MEDS: VERSED 5 MG/5 ML IV STA (12:24)
[2024-10-28] MEDS: Zemuron 100 MG/10 ML IV STA (12:25)
[2024-10-28] MEDS: Sodium Chloride 0.9% 1000 ML 1,000 ML IV SCH (12:28)
[2024-10-28 12:29] LABS: Amphetamine,Urine NEGATIVE (NEGATIVE); Appearance Cloudy (Clear); Barbiturate,Urine NEGATIVE (NEGATIVE); Benzodiazepine,Urine NEGATIVE (NEGATIVE); Bilirubin Negative (Negative); Blood Moderate (Negative); Cocaine,Urine NEGATIVE (NEGATIVE); Glucose, Urine Negative (Negative); Ketones Negative (Negative); Leukocyte Esterase Negative (Negative); Methadone,Urine NEGATIVE (NEGATIVE); Nitrite Negative (Negative); Opiate,Urine POSITIVE (NEGATIVE); PCP,Urine NEGATIVE (NEGATIVE); Protein,Urine Dip 300 (Negative); RBC 0-2 /HPF (0-5); THC,Urine NEGATIVE (NEGATIVE)
[2024-10-28 12:30] LABS: Bacteria Moderate /HPF (None Seen); Epithelial Cells Few /HPF (None Seen); Granular Casts 0-2 /LPF (None Seen); Hyaline Casts 0-2 /LPF (0-2)
[2024-10-28 12:35] LABS: ALBUMIN 4.5 g/dL (3.5-5.0); ALKALINE PHOSPHATASE 72 U/L (38-126); BLOOD UREA NITROGEN 24 mg/dL (9-20); CHLORIDE 98 mmol/L (98-107); Calcium 8.9 mg/dL (8.4-10.2); Carbon Dioxide 35 mmol/L (22-30); Creatinine 1 1.15 mg/dL (0.66-1.25); EST GLOMERULAR FILTRATION RATE 79.5 ML/MIN; ETHYL ALCOHOL < 10 mg/dL (0-10); Glucose 141 mg/dL (74-106); MAGNESIUM 2.2 mg/dL (1.6-2.3); NT PRO BNPII 2710 pg/mL (<300); Potassium 5.2 mmol/L (3.5-5.1); SGOT/AST 47 U/L (17-59); SGPT/ALT 34 U/L (0-50); SODIUM 145 mmol/L (135-145); Total Protein 8.5 g/dL (6.3-8.2)
[2024-10-28 12:36] LABS: ANION GAP 17.2 MEQ/L (5-15)
[2024-10-28] MEDS ORDERED: Merrem IV ONE (12:40)
[2024-10-28] MEDS ORDERED: Sodium Chloride 100ML MINI-BAG PLUS 100 ML IV ONE (12:41)
[2024-10-28] MEDS: Merrem 1 GM in Sodium Chloride 100ML MINI-BAG PLUS 100 ML IV ONE (12:41)
[2024-10-28 12:50] LABS: ATYPICAL LYMPHS 2 %; BAND 26 % (0.0-2.0); Lymphocytes 8 % (21.8-53.1); Metamyelocyte 1 %; Monocyte 16 % (5.3-12.2); Neutrophils 47 % (34.0-67.9); Total Cells Counted 100
[2024-10-28 12:52] LABS: Basophilic Stippling 1+; Polychromasia 1+
[2024-10-28 13:02] LABS: Platelet Estimate NORMAL (NORMAL)
[2024-10-28] MEDS: NOREPINEPHRINE 8 MG/250 ML-D5W 8 MG/250 ML PLAST..BAG IV PRN (13:05)
[2024-10-28 13:09] LABS: INFLUENZA A NEGATIVE (NEGATIVE); INFLUENZA B NEGATIVE (NEGATIVE); RESPIRATORY SYNCTIAL VIRUS NEGATIVE (NEGATIVE); SARS-CoV-2 Xpert Express NEGATIVE (NEGATIVE)
[2024-10-28] MEDS ORDERED: Lasix 40 MG/4 ML ONE (13:54)
[2024-10-28 13:56] LABS: A-aADO2 473; ABG HEMOGLOBIN 13.9; ABG POTASSIUM 5.5 (3.5-5.1); ARTERIAL BLD GAS O2 SATURATION 99.2 % (95-100); ARTERIAL BLD GAS TIDAL VOLUME 750 cc; ARTERIAL BLOOD GAS BASE EXCESS 6.5 (-2.0-2.0); ARTERIAL BLOOD GAS FIO2 100 %; ARTERIAL BLOOD GAS PO2 158 mmHg (75-100); ARTERIAL BLOOD GAS VENT MODE A/C; ARTERIAL BLOOD GAS pH 7.33 (7.35-7.45); CARBOXYHEMOGLOBIN 3.1 % THgb (0.0-6.9); HCO3- 34.8 (22-28); HGB O2 SAT 95.4 g/dF (94-100); Methhemoglobin 0.7 % (1.4-1.5); paO2 pAO1 0.25
[2024-10-28] MEDS: Lasix 40 MG/4 ML IV ONE (13:56)
[2024-10-28 13:59] LABS: ARTERIAL BLOOD GAS PCO2 66 mmHg (35-45)
[2024-10-28 14:00] LABS: ABG SITE RIGHT BRACHIAL; ARTERIAL BLOOD GAS VENT RATE 16 /MIN
[2024-10-28 14:02] LABS: ABG POTASSIUM 5.3 (3.5-5.1); ARTERIAL BLD GAS O2 SATURATION 82.3 % (95-100); ARTERIAL BLOOD GAS FIO2 100 %; ARTERIAL BLOOD GAS PCO2 125 mmHg (35-45); ARTERIAL BLOOD GAS PO2 51 mmHg (75-100); ARTERIAL BLOOD GAS VENT MODE NRB; CARBOXYHEMOGLOBIN 4.1 % THgb (0.0-6.9); HGB O2 SAT 78.4 g/dF (94-100); Methhemoglobin 0.6 % (1.4-1.5)
[2024-10-28 14:03] LABS: ARTERIAL BLOOD GAS pH 7.09 (7.35-7.45)
[2024-10-28 14:08] LABS: ARTERIAL BLD GAS TIDAL VOLUME 0 cc; ARTERIAL BLOOD GAS PEEP 0 cmH2O; BIPAP(E) 8; BIPAP(I) 16
[2024-10-28 14:13] LABS: ABG SITE RIGHT RADIAL; ALLEN TEST OK? YES
[2024-10-28] MEDS ORDERED: SUBLIMAZE 100 MCG/2 ML ONE ×2 (14:40→15:13)
[2024-10-28] MEDS: SUBLIMAZE 100 MCG/2 ML IV ONE ×2 (14:47→15:10)
[2024-10-28] MEDS ORDERED: VERSED 5 MG/5 ML ONE (14:58)
[2024-10-28] MEDS: VERSED 5 MG/5 ML IV ONE (15:00)
[2024-10-28] MEDS: FENTANYL 500 MCG/10 ML VIAL 1,500 MCG in Sodium Chloride 0.9% 150 ML 120 ML IV PRN (15:15)
[2024-10-28] MEDS ORDERED: Sodium Chloride 3 ML UD NEBULES IH ONE (15:21)
[2024-10-28] MEDS ORDERED: DUONEB 0.5-3 MG/3 ml Neb IH ONE (15:51)
[2024-10-28] MEDS: DUONEB 0.5-3 MG/3 ml Neb IH ONE (15:53)
[2024-10-28 16:03] VITALS: BP 133/72
[2024-10-28 16:04] VITALS: TEMP 97.5
[2024-10-28] MEDS ORDERED: PROVENTIL 2.5 MG/3 ML NEB IH ONE (16:28)
[2024-10-28] MEDS: PROVENTIL 2.5 MG/3 ML NEB IH ONE (16:32)
[2024-10-28 17:04] VITALS: PULSE 110
[2024-10-28 17:16] VITALS: RESP 16; O2SAT 99
--- NOTE | 2024-10-28 19:28 | XRAY ---
Indication: Respiratory distress. Comparison: January 09, 2024 Portable chest demonstrates new diffuse right lung airspace disease. Also new cardiomegaly with vascular congestion with small bibasilar effusions concerning for superimposed cardiac decompensation/CHF. Bony thorax intact.
--- NOTE | 2024-10-28 19:28 | XRAY ---
Indication: Endotracheal tube placement. Post sedation. Comparison: Taken other than today. Portable chest demonstrates new endotracheal tube tip approximately 5 cm above edward. Grossly stable diffuse right lung airspace disease, cardiomegaly, vascular congestion, and small bibasilar effusions.
== END 2024-10-28 17:16 | disposition short-term general hospital (02) ==
LOC: ED 11:34
DX: A41.9 Sepsis, unspecified organism (principal); J18.9 Pneumonia, unspecified organism; R65.20 Severe sepsis without septic shock; J96.01 Acute respiratory failure with hypoxia; Z99.11 Dependence on respirator [ventilator] status; R41.82 Altered mental status, unspecified; I10 Essential (primary) hypertension; Z79.01 Long term (current) use of anticoagulants; Z79.899 Other long term (current) drug therapy; Z72.0 Tobacco use
CPT/HCPCS: 0241U; 31500; 36415; 36600; 51702; 71045; 80053; 80307; 81001; 82077; 82375; 82803; 83605; 83735; 83880; 84484; 85025; 85610; 87040; 87086; 93005; 94002; 94640; 94760; 96360; 96361; 96365; 96366; 96367; 96368; 96374; 96375; 99291; 99292; 99285; J1940; J2250; J3010; J7609; A9270-GY